=== PATIENT | male | born 1945 | race Caucasian/White ===

== ENCOUNTER 2016-07-15 03:05 | Inpatient (IN) ==
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
[2016-07-10 16:26] LABS: MANUAL DIFF NEEDED? NO; URINE MICRO REVIEW NEEDED? NO; URINE SOURCE VOIDED
[2016-07-10 16:34] LABS: BASO% 0.6 % (0.0-0.8); BILIRUBIN URINE NEGATIVE (NEGATIVE); BLOOD URINE NEGATIVE (NEGATIVE); COLOR YELLOW; EOS# 0.16 X1000 (0.0-0.7); EOS% 2.3 % (0.0-10.0); GLUCOSE URINE NEGATIVE (NEGATIVE); HEMATOCRIT 43.1 % (42.0-52.0); LEUKOCYTES URINE NEGATIVE (NEGATIVE); LYMPH# 1.96 X1000 (1.2-3.4); LYMPH% 27.7 % (20.5-51.1); MCH 24.9 PG (27-31); MCHC 32.5 g/dL (33-37); MCV 76.6 FL (81-99); MONO# 0.73 X1000 (0.11-0.59); MONO% 10.3 % (1.7-9.3); MPV 10.3 FL (7.4-10.4); NEUT% 59.1 % (42.2-75.2); NITRITE URINE NEGATIVE (NEGATIVE); PLT 303 X1000 (130-400); PROTEIN URINE TRACE mg/dL (NEGATIVE); RBC 5.63 XMIL (4.7-6.1); SP GRAVITY URINE 1.019; TURBIDITY URINE CLEAR (CLEAR); UROBILINOGEN URINE NORMAL (NORMAL)
[2016-07-10 16:35] LABS: UR EPITHELIAL CELLS <10 /HPF (<10); URINE BACTERIA NEGATIVE /HPF; URINE RBC <10 /HPF (<10); URINE WBC <10 /HPF (<10)
--- NOTE | 2016-07-10 17:03 | EKG Report ---
Test Performed on : 07/10/2016 3:59:09 PM Test Reason : PAT Blood Pressure : / mmHG Vent. Rate : 082 BPM Atrial Rate : 082 BPM P-R Int : 180 ms QRS Dur : 094 ms QT Int : 356 ms P-R-T Axes : 037 -43 083 degrees QTc Int : 415 ms Sinus rhythm. with blocked premature atrial complexes. with premature supraventricular complexes. Left axis deviation Inferior infarct , age undetermined Abnormal ECG No previous ECGs available Confirmed by Carlitos Pizarro MD ([id number]) on 07/11/2016 3:29:38 PM
[2016-07-10 17:05] LABS: AGAP 14; ALBUMIN 4.1 g/dL (3.5-5.0); ALKALINE PHOSPHATASE 120 U/L (32-122); BUN 13 mg/dL (8-22); CALCIUM 9.2 mg/dL (8.8-10.2); CHLORIDE 92 mmol/L (98-107); COSMO 264; GOT 9 U/L (10-34); GPT 9 U/L (10-44); POTASSIUM 3.9 mmol/L (3.5-5.1); SODIUM 131 mmol/L (136-145); TCO2 25 mmol/L (25-35); TOTAL BILIRUBIN 0.35 mg/dL (0.20-1.00); TOTAL PROTEIN 7.5 g/dL (6.3-8.3)
[2016-07-15] MEDS ORDERED: PEPCID ONE (06:13)
[2016-07-15] MEDS ORDERED: LR 1,000 ML ONE ×2 (06:13→08:46)
[2016-07-15] MEDS ORDERED: XYLOCAINE 1%/EPI 1:100,000 ONE (06:28)
[2016-07-15] MEDS ORDERED: MARCAINE 0.25% PF/EPI 1:200,000 ONE (06:28)
[2016-07-15] MEDS ORDERED: NS 250 ML ONE (06:29)
[2016-07-15] MEDS ORDERED: HEPARIN ONE (06:29)
[2016-07-15] MEDS ORDERED: MEFOXIN 1 GM/D5W 1 GM/50 ML IVPB IV ONE (07:00)
[2016-07-15] MEDS ORDERED: FLAGYL 1000 MG/NS 1,000 MG/200 ML IVPB IV ONE (07:00)
[2016-07-15] MEDS ORDERED: EXPAREL 1.3% ONE (07:06)
[2016-07-15] MEDS ORDERED: MARCAINE 0.25% PF ONE (07:06)
[2016-07-15] MEDS ORDERED: SODIUM CHLORIDE 0.9% 10 ML ONE (07:06)
[2016-07-15] MEDS ORDERED: VERSED ONE (08:38)
[2016-07-15 08:39] LABS: URINE MICRO REVIEW NEEDED? NO; URINE SOURCE CATH
[2016-07-15] MEDS ORDERED: DIPRIVAN 1% ONE (08:39)
[2016-07-15 08:42] LABS: BILIRUBIN URINE NEGATIVE (NEGATIVE); BLOOD URINE NEGATIVE (NEGATIVE); COLOR YELLOW; GLUCOSE URINE NEGATIVE (NEGATIVE); LEUKOCYTES URINE NEGATIVE (NEGATIVE); NITRITE URINE NEGATIVE (NEGATIVE); PH URINE 8.5; PROTEIN URINE 70 mg/dL (NEGATIVE); SP GRAVITY URINE 1.021; TURBIDITY URINE HAZY (CLEAR); UR EPITHELIAL CELLS <10 /HPF (<10); URINE BACTERIA NEGATIVE /HPF; URINE RBC <10 /HPF (<10); URINE WBC <10 /HPF (<10); UROBILINOGEN URINE NORMAL (NORMAL)
[2016-07-15] MEDS ORDERED: XYLOCAINE-MPF 2% ONE (08:45)
[2016-07-15] MEDS ORDERED: ZOFRAN ONE (08:45)
[2016-07-15] MEDS ORDERED: ROBINUL ONE (08:45)
[2016-07-15] MEDS ORDERED: NEOSTIGMINE ONE (08:45)
[2016-07-15] MEDS ORDERED: QUELICIN (DOSE) ONE (08:46)
[2016-07-15] MEDS ORDERED: DECADRON ONE (08:46)
[2016-07-15] MEDS ORDERED: ZEMURON ONE (08:46)
[2016-07-15] MEDS: DILAUDID ONE ×3 (08:57→09:10)
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
[2016-07-15] MEDS ORDERED: D5 1/2 NS 1,000 ML ONE (09:10)
[2016-07-15] MEDS ORDERED: ZOFRAN IV PRN ×2 (09:36→16:28)
[2016-07-15] MEDS ORDERED: MORPHINE IV PRN (09:37)
[2016-07-15] MEDS: D5 1/2 NS 1,000 ML IV SCH ×2 (11:55→20:19)
--- NOTE | 2016-07-15 11:59 | OPERATIVE NOTE ---
PROCEDURE DATE: 07/15/2016 PREOPERATIVE DIAGNOSIS: Esophageal carcinoma. POSTOPERATIVE DIAGNOSIS: Esophageal carcinoma. PROCEDURE: 1. Left subclavian PowerPort for chemotherapy. 2. Laparotomy for placement feeding jejunostomy. DESCRIPTION OF PROCEDURE IN DETAIL: The patient was brought to the operating room after satisfactory induction of IV and endotracheal anesthesia. Athrombic SHAUNNA's and Reeves catheter were placed. Initially his left chest and neck were prepped and draped in the appropriate manner. In the midclavicular line, an area was infiltrated with Marcaine and Xylocaine with epinephrine. A transverse incision was made down to the clavipectoral fascia. Through the base of this incision, a subcutaneous pocket was developed inferiorly. Likewise, through the base of this incision, the subclavian vein was cannulated. A guidewire was introduced into the right atrial area of the heart. On fluoroscopy, the wire was seen to be in satisfactory position. There was no pneumothorax. A 9-Chadian introducer was used to dilate the vessel and a system trimmed to 20 cm was threaded down the superior vena cava-right atrial junction. It was flushed with heparinized saline. The reservoir was anchored to the clavipectoral fascia with 3-0 silk. The subcutaneous was closed with 3-0 Vicryl and the skin itself with 4-0 Vicryl subcuticular. Steri-Strips, Telfa, and OpSite were applied. The patient was then re-prepped and draped for exploratory laparotomy. He has a large diastasis rectus muscle. So, for this reason a left paramedian incision was performed for placement of the feeding jejunostomy. The ligament of Treitz was identified on entry into to the abdomen. There was no gross evidence of malignancy. The patient has a known esophageal carcinoma. Jejunum was mobilized. The ligament of Treitz was once again identified. An area about a foot from the ligament of Treitz was prepared with double pursestring of 2-0 Vicryl. A left lateral stab wound incision was made and an 18-gauge Red Zavaleta catheter was placed. Subsequently enterotomy was performed in the middle of the pursestring and the Red Zavaleta was threaded distally. The pursestring was tied and the sutures were anchored to the peritoneal surface. After accounting for all sponges, closure was initiated. The peritoneum was closed in a single running layer of #1 Vicryl. The fascia was closed with running #1 PDS or Maxon. Subcutaneous was closed with 3-0 Vicryl and the skin, itself, with stainless steel clips. Sterile dressing was applied around the jejunostomy, as well as the wound. The patient was subsequently awakened and extubated in the operating room. His Reeves catheter was removed. Estimated blood loss was a total of 20 mL for both procedures. cc: Sim Molina MD
[2016-07-15 12:44] LABS: URINE CULTURE NEEDED? NO; URINE MICRO REVIEW NEEDED? NO; URINE SOURCE CATH
[2016-07-15 12:58] LABS: BILIRUBIN URINE NEGATIVE (NEGATIVE); BLOOD URINE NEGATIVE (NEGATIVE); COLOR YELLOW; GLUCOSE URINE 70 mg/dL (NEGATIVE); LEUKOCYTES URINE NEGATIVE (NEGATIVE); NITRITE URINE NEGATIVE (NEGATIVE); PROTEIN URINE NEGATIVE (NEGATIVE); SP GRAVITY URINE 1.009; TURBIDITY URINE CLEAR (CLEAR); UROBILINOGEN URINE NORMAL (NORMAL)
[2016-07-15 13:08] LABS: UR EPITHELIAL CELLS <10 /HPF (<10); URINE BACTERIA NEGATIVE /HPF; URINE RBC <10 /HPF (<10); URINE WBC <10 /HPF (<10)
[2016-07-15] MEDS ORDERED: NARCAN IV PRN (16:28)
[2016-07-15] MEDS ORDERED: DILAUDID PCA VIAL IV PRN (16:28)
[2016-07-15] MEDS: NORCO-10 PO PRN (16:37)
[2016-07-15] MEDS: PRAVACHOL PO SCH (20:19)
[2016-07-15] MEDS: NORCO-10 PO SCH (20:20)
[2016-07-15] MEDS: FLOMAX PO SCH (20:20)
[2016-07-15] MEDS: PERIDEX MT SCH (20:20)
[2016-07-16] MEDS: D5 1/2 NS 1,000 ML IV SCH ×2 (06:43→16:45)
[2016-07-16] MEDS: PERIDEX MT SCH ×2 (09:19→20:40)
[2016-07-16] MEDS: FLOMAX PO SCH ×2 (09:20→20:40)
[2016-07-16] MEDS: NORCO-10 PO SCH ×2 (09:20→20:39)
[2016-07-16] MEDS: TOFRANIL PO SCH (09:20)
[2016-07-16] MEDS: NORVASC PO SCH (09:20)
[2016-07-16] MEDS: STELAZINE PO SCH (09:21)
[2016-07-16] MEDS: NORCO-10 PO PRN (16:46)
[2016-07-16] MEDS: PRAVACHOL PO SCH (20:40)
[2016-07-17] MEDS: D5 1/2 NS 1,000 ML IV SCH ×2 (03:38→13:24)
[2016-07-17] MEDS: NORCO-10 PO PRN ×2 (03:42→13:22)
[2016-07-17] MEDS: NORCO-10 PO SCH (08:59)
[2016-07-17] MEDS: FLOMAX PO SCH (08:59)
[2016-07-17] MEDS: STELAZINE PO SCH (08:59)
[2016-07-17] MEDS: PERIDEX MT SCH (09:00)
[2016-07-17] MEDS: NORVASC PO SCH (09:00)
[2016-07-17] MEDS: TOFRANIL PO SCH (09:00)
[2016-07-17 11:36] VITALS: BP 163/85
== END 2016-07-17 15:08 | disposition home health service (06) ==
LOC: SURHOLD 03:05 → 4N 09:30
PROVIDERS: ADMIT Surgery; ATTEND Surgery

== ENCOUNTER 2016-08-30 11:09 | Inpatient (IN) ==
[2016-08-30] MEDS ORDERED: NS 1,000 ML IV ONE (11:24)
[2016-08-30] MEDS ORDERED: ZOFRAN IV ONE (11:24)
[2016-08-30 11:53] LABS: BASO% 0.1 % (0.0-0.8); EOS# 0.05 X1000 (0.0-0.7); EOS% 0.2 % (0.0-10.0); HEMATOCRIT 38.9 % (42.0-52.0); HEMOGLOBIN 12.7 g/dL (14.0-18.0); LYMPH# 2.26 X1000 (1.2-3.4); LYMPH% 9.5 % (20.5-51.1); MANUAL DIFF NEEDED? NO; MCH 26.4 PG (27-31); MCHC 32.6 g/dL (33-37); MCV 80.9 FL (81-99); MONO# 0.77 X1000 (0.11-0.59); MONO% 3.2 % (1.7-9.3); MPV 10.2 FL (7.4-10.4); PLT 323 X1000 (130-400); RBC 4.81 XMIL (4.7-6.1)
--- NOTE | 2016-08-30 12:19 | Diag Imaging Result Doc PS360 ---
EXAM: FLAT/UPRIGHT ABD/1 VIEW CHEST HISTORY: Feeding tube came out, cancer on chemo TECHNIQUE: Three views COMPARISON: Chest is compared to 07/15/2016 FINDINGS: The lungs are well expanded. No cardiomegaly. No change in the left subclavian portacatheter. No pneumonia. No free air beneath the diaphragm. Prominent stool in the distal colon. The bowel loops are not dilated. No organomegaly. No abnormal calcifications. IMPRESSION: Constipation Electronically signed by Anthony Souza 08/30/2016 12:16 PM
[2016-08-30 12:22] LABS: AGAP 14; ALBUMIN 3.3 g/dL (3.5-5.0); ALKALINE PHOSPHATASE 89 U/L (32-122); AMYLASE 52 U/L (20-200); BUN 25 mg/dL (8-22); CALCIUM 7.9 mg/dL (8.8-10.2); CHLORIDE 92 mmol/L (98-107); COSMO 276; GOT 9 U/L (10-34); GPT 13 U/L (10-44); LIPASE 28 U/L (13-60); MAGNESIUM 2.1 mg/dL (1.5-2.7); POTASSIUM 3.8 mmol/L (3.5-5.1); SODIUM 133 mmol/L (136-145); TCO2 27 mmol/L (25-35); TOTAL BILIRUBIN 0.26 mg/dL (0.20-1.00); TOTAL PROTEIN 5.7 g/dL (6.3-8.3)
[2016-08-30] MEDS ORDERED: PHENERGAN IV ONE (13:38)
[2016-08-30] MEDS ORDERED: SODIUM CHLORIDE 0.9% INJ ONE (13:38)
[2016-08-30 13:57] LABS: BILIRUBIN URINE NEGATIVE (NEGATIVE); BLOOD URINE NEGATIVE (NEGATIVE); COLOR YELLOW; GLUCOSE URINE NEGATIVE (NEGATIVE); LEUKOCYTES URINE NEGATIVE (NEGATIVE); NITRITE URINE NEGATIVE (NEGATIVE); PH URINE 6.5; PROTEIN URINE 30 mg/dL (NEGATIVE); SP GRAVITY URINE 1.028; TURBIDITY URINE CLEAR (CLEAR); URINE CULTURE NEEDED? NO; URINE MICRO REVIEW NEEDED? NO; URINE SOURCE CLEAN CATCH; UROBILINOGEN URINE 2 mg/dL (NORMAL)
[2016-08-30 13:58] LABS: UR EPITHELIAL CELLS <10 /HPF (<10); URINE BACTERIA NEGATIVE /HPF; URINE RBC <10 /HPF (<10); URINE WBC <10 /HPF (<10)
--- NOTE | 2016-08-30 13:58 | PROVIDER DOCUMENTATION ---
This chart was entered by Kassie Stauffer Scribe, acting as scribe for Jessika Emerson MD. HPI-General Adult - General Chief Complaint: Nausea/Vomiting Stated Complaint: nausea/feeding tube out Time Seen by Provider: 08/30/16 11:11 Source: patient Allergies/Adverse Reactions: Patient Allergies Allergy/AdvReac Type Severity Reaction Status Date / Time No Known Allergies Allergy Verified 08/30/16 11:34 Home Medications: Home Medication List Medication Instructions Recorded Confirmed Last Taken Type Amlodipine [Norvasc] 5 mg PO DAILY 07/10/16 08/30/16 08/26/16 History Hydrocodone/Acetaminophen [Moodus 1 each PO BID 07/10/16 08/30/16 08/26/16 History 10-325 Tablet] Imipramine [Tofranil] 50 mg PO HS 07/10/16 08/30/16 08/26/16 History PRAVAstatin [Pravachol] 40 mg PO QHS 07/10/16 08/30/16 08/26/16 History Tamsulosin [Flomax] 0.4 mg PO BID 07/10/16 08/30/16 08/26/16 History Trifluoperazine [Stelazine] 2 mg PO HS 07/10/16 08/30/16 08/26/16 History Cephalexin 250 mg PO TID 08/27/16 08/30/16 08/26/16 14:30 History Doxylamine/Pyridoxine HCl 1 each PO TID PRN #10 tablet. 08/27/16 08/30/1606/09 Rx [Dangelo Juarez 10-10 mg Tablet] Fentanyl 25 Microgm/Hr Patch 1 patch TOP ORDERED 08/27/16 08/30/16 08/26/16 History [Duragesic 25 Microgm/Hr Patch] - History of Present Illness -Gen Adult Nature of Presenting Problems: PT IS A 71YOM PRESENTING TO THE ED C/O VOMITING AND PULLING J-TUBE OUT THIS AM. PT HAS A HISTORY OF STAGE 2 ESOPHAGEAL CANCER AND JUST COMPLETED 2ND ROUND OF CHEMO ON THURSDAY. PT STATES HE BEGAN VOMITING LAST PM WITHOUT RESOLUTION OF SYMPTOMS W/ PO MEDS AT HOME. PT ALSO STATES WHILE USING THE RESTROOM THIS AM HIS J-TUBE FEEL OUT. NO OTHER COMPLAINTS NOTED AT THIS TIME. Location of Pain/Injury: reports: generalized Pain Radiation: reports: no radiation Quality of Pain: reports: aching, cramping Severity: reports: moderate Onset/Duration: reports: 24 hours ago Timing: reports: still present Context/Activities at Onset: reports: light activity Modifying Factors: improves with: other medication (CHEMO ON WED) Associated Symptoms: reports: fatigue, nausea, vomiting, weakness. denies: arm pain, back/neck pain, diarrhea, shortness of breath Similar Symptoms Previously?: Yes Recently seen or treated by another doctor?: No Review of Systems - Adult - REVIEW OF SYSTEMS - ADULT Constitutional: reports: see HPI, fatique. denies: fever, night sweats Eyes: reports: no symptoms reported Ears, Nose, Mouth & Throat: reports: no symptoms reported Cardiovascular: reports: no symptoms reported Respiratory: reports: no symptoms reported Gastrointestinal: reports: see HPI, abdominal pain, nausea, vomiting, other (J- TUBE FEEL OUT THIS AM). denies: constipation, diarrhea Genitourinary: reports: no symptoms reported Musculoskeletal: reports: no symptoms reported Integumentary: reports: no symptoms reported Neurological: reports: no symptoms reported Psychiatric: reports: no symptoms reported Endocrine: reports: no symptoms reported Hematologic/Lymphatic: reports: no symptoms reported Allergic/Immunologic: reports: no symptoms reported All Other Systems: Reviewed and Negative Past History - Adult - PAST MEDICAL HISTORY-ADULT Review of Records: reports: Old Records Reviewed, Nursing Assessment Review, Medications Reviewed, Social history reviewed & non-contributory. Major Childhood Illnesses: reports: denies history Cardiovascular: reports: HTN Respiratory: reports: denies history Gastrointestinal: reports: cancer (esophageal) Obstetrical/Gynecological: reports: denies history Genitourinary: reports: denies history Musculoskeletal: reports: denies history Neurological: reports: denies history Endocrine/Immune: reports: Diabetes Other Conditions: reports: denies history - PRIOR SURGERIES/PROCEDURES Surgical/Procedure History: reports: indwelling device (Port cath, PEG TUBE), orthopedic (extremity) - IMMUNIZATION STATUS Childhood Immunizations: See Nurse Assessment Flu Vaccine: See Nurse Assessment - FAMILY HISTORY Family History: reviewed, not pertinent - SOCIAL HISTORY Smoking: non-smoker Substance Use: none/never, denies Alcohol Use Frequency: never Living Situation: family Physical Exam-General - PHYSICAL EXAM-ADULT Initial Vital Signs Reviewed: Yes - CONSTITUTIONAL General Appearance: appears well, alert, mild distress, moderate distress - EYES Eyes: PERRL/EOMI, pink conjunctivae - HEAD, EARS, NOSE, MOUTH & THROAT HENMT: normocephalic/atraumatic, moist mucous membranes, normal ENT inspection, TMs normal, pharynx normal - NECK Neck: non-tender, full range of motion, supple, normal inspection - RESPIRATORY Respiratory: chest non-tender, lungs clear, normal breath sounds, no pleuratic chest pain, no respiratory distress, no accessory muscle use - CARDIOVASCULAR Cardiovascular: normal peripheral pulses, regular rate, rhythm, no edema, no gallop, no JVD, no murmur - GASTROINTESTINAL (ABDOMEN) Abdominal Exam: normal bowel sounds, soft, no organomegaly, no pulsatile mass, tenderness. negative: non tender - LYMPHATIC Lymphatic: no adenopathy - MUSCULOSKELETAL Back Exam: normal inspection, no CVA tenderness, no vertebral tenderness Extremity: non-tender, no pedal edema, no calf tenderness, normal capillary refill, pelvis stable. 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 II-XII nml as tested, grossly normal, no motor/sensory deficits - PSYCHIATRIC Psych/Mental Status: normal mood/affect, normal thought content, normal thought process, oriented x 3 Progress - PLAN OF CARE/RESULTS Progress/Plan/Lab Results: Vital Signs - 8 hr 08/30/16 11:14 Temperature 97.4 F L Pulse Rate 98 H Respiratory Rate 24 Blood Pressure 164/82 O2 Sat by Pulse Oximetry 96 Orders Category Date Time Status Saline Loc DIRECTED Care 08/30/16 11:24 Active NPO Diet 08/30/16 11:24 Active FLAT/UPRIGHT ABD/1 VIEW CHEST [RAD] Stat Exams 08/30/16 11:24 Ordered AMYLASE [CHEM] Stat Lab 08/30/16 11:24 Uncollected CBC WITH ELECTRONIC DIFF [HEME] Stat Lab 08/30/16 11:24 Uncollected COMPREHENSIVE METABOLIC PANEL [CHEM] Stat Lab 08/30/16 11:24 Uncollected LIPASE [CHEM] Stat Lab 08/30/16 11:24 Uncollected MAGNESIUM [CHEM] Stat Lab 08/30/16 11:24 Uncollected TROPONIN T Stat Lab 08/30/16 11:24 Uncollected URINALYSIS W/POSS RFLX CULT-1 [URINALYSIS] Stat Lab 08/30/16 11:24 Uncollected 0.9% Sodium Chloride Inj [Ns] 1,000 ml Med 08/30/16 11:24 Active IV 999 mls/hr Ondansetron [Zofran] Med 08/30/16 11:24 Discontinued 8 mg IV NOW ONE Laboratory Tests 08/30/16 08/30/16 08/30/16 11:29 11:29 11:29 WBC 23.86 H RBC 4.81 Hgb 12.7 L Hct 38.9 L MCV 80.9 L MCH 26.4 L MCHC 32.6 L RDW Std Deviation 17.1 H Plt Count 323 MPV 10.2 Neut % (Auto) 87.0 H Lymph % (Auto) 9.5 L [place] % (Auto) 3.2 Eos % (Auto) 0.2 Baso % (Auto) 0.1 Neut # (Auto) 20.75 H Lymph # (Auto) 2.26 [place] # (Auto) 0.77 H Eos # (Auto) 0.05 Baso # (Auto) 0.03 Sodium 133 L Potassium 3.8 Chloride 92 L Carbon Dioxide 27 Anion Gap 14 BUN 25 H Creatinine 0.6 L Estimated GFR/1.73 m2 > 60 BUN/Creatinine Ratio 42 Glucose 191 H Calculated Osmolality 276 Calcium 7.9 L Magnesium 2.1 Total Bilirubin 0.26 AST 9 L ALT 13 Alkaline Phosphatase 89 Troponin T < 0.010 Total Protein 5.7 L Albumin 3.3 L Globulin 2.4 Albumin/Globulin Ratio 1.4 Amylase 52 Lipase 28 Result Diagrams: 08/30/16 11:29 08/30/16 11:29 - REASSESSMENT Reassessment #1 Time Reassessed: 13:55 Status: improving (Pt is still feeling nauseated after IV Zofran, but no vomiting. Still has no UOP yet. IV Phenergan given. Paged Dr. Beatty multiple times by now, no have not heard from him yet. Will call hopsitalist for admission.) - XRAY 1 XRAY: Bilateral XRAY Study: Abdomen (CONSTIPATION - HURST) - CONSULTS/PCP/HOSPITALIST Notification #1 *Consult/PCP/Hospitalist*: DR CANTRELL Time Discussed: 13:13 (CONSULT FOR J-TUBE PLACEMENT) Consult Disposition: other #2 Consult: Heike/Dr. Al Time Discussed: 13:58 Consult Disposition: Will see in ED, Admit Departure - Departure Date of Disposition Decision: 08/30/16 Time of Disposition Decision: 13:57 DIAGNOSIS: Nausea & vomiting, History of cancer chemotherapy, Feeding tube dysfunction Disposition: ADMITTED INPATIENT 09 Certified Medical Emergency: Emergent Condition: Stable Referrals and Follow-Ups: Zenon Alford MD [Primary Care Provider] - - Critical Care Note This patient required my direct & personal management of CC.: No This chart was documented by the indicated scribe, (Kassie Stauffer Scribe) and accurately reflects the services I performed and decisions made by me, Jessika Emerson MD, as attested by the provider's signature.
--- NOTE | 2016-08-30 14:53 | HISTORY AND PHYSICAL ---
This is a 71-year-old who presented to the emergency room on 08/30/2016. Has a history of esophageal cancer. He is scheduled to get some radiation treatments. He has had chemotherapy per Dr. Jane Kenyon. OTHER PAST MEDICAL HISTORY: He has had colon cancer. History of coronary artery disease. History of myocardial infarction. Hypertension, enlarged prostate, gastroesophageal reflux disease. He has had reported colon cancer, colon polyps, diabetes mellitus type 2. He has had a colonoscopy and EGDs. He had some hand surgery. FAMILY HISTORY: History of heart disease, hypertension, diabetes and cancer. SOCIAL HISTORY: Retired, , 2 children. Denies alcohol. Past tobacco, quit in 1990. He had chemotherapy yesterday. He has had nausea throughout the day and he threw up pretty hard and his G-tube came out but he is still nauseated and still not able to keep anything down. He appears in mild volume depletion or dehydration as his mucous membranes are dry so plan to put him in the hospital. Note his abdominal x-ray on 08/30 or today showed constipation. No free air. Lung romero are clear. Has a left subclavian Port-A-Cath. FAMILY HISTORY: Noncontributory. REVIEW OF SYSTEMS: Denies any weight gain or loss. No fever or chills.HEENT: Unremarkable. Respiratory: No increased work of breathing or dyspnea. Cardiovascular: No chest pain or tachy palpitation. GI/: As above. Nausea, lost his G-tube. EXAM: Temp 97.4 degrees, pulse 97, respirations 22, blood pressure 147/76. HEENT: The pupils are equal, round. Lungs: Are clear in all lung romero. Cardiovascular: Regular rhythm and rate without murmur or S3. Abdomen: Soft, nontender, nondistended. Positive bowel sounds. No hepatosplenomegaly. Extremities: Without clubbing, cyanosis, or edema. Has a fistula in the left upper abdomen where his G-tube was. Weight 175 pounds, height 5 feet 11 inches. White blood cell count 2360, hematocrit 38, platelet count 323,000. Sodium 133, potassium 3.8, chloride 92, bicarb 27, BUN 25, creatinine 0.6. Blood sugar 191. Magnesium 2.1. AST 9, ALT 13. Troponin less than 0.01. Albumin 3.3, amylase 52, lipase 28. Urinalysis unremarkable. ASSESSMENT AND PLAN: 1. Esophageal cancer getting chemotherapy. I suspect this is related to esophageal mucositis and nausea from the chemotherapy. Will give him IV fluids, normal saline. We will get will try Zofran and try Phenergan and even Reglan and see if we can get the nausea to calm down some. I think I will give him some nutrition using Clinimix. 2. G-tube came out. Asked Dr. Molina what he would like to do. Also Dr. Kenyon's patient. 3. Consult Dr. Kenyon and Dr. Molina. Review of his medicines. At home he is on Norvasc 5 mg a day. He was taking cephalexin 250 mg t.i.d., fentanyl patch 25 mcg to 72 hours. Hydrocodone 10-325 one b.i.d., imipramine 50 mg p.o. at bedtime, Pravachol 40 mg at bedtime, Flomax 0.4 mg b.i.d., Stelazine 2 mg p.o. at bedtime. cc: Emory Al MD
[2016-08-30] MEDS ORDERED: PHENERGAN IV PRN (15:20)
[2016-08-30] MEDS ORDERED: NS 1,000 ML IV SCH (15:20)
[2016-08-30] MEDS ORDERED: SODIUM CHLORIDE 0.9% INJ SCH (15:20)
[2016-08-30] MEDS ORDERED: APRESOLINE IV PRN (15:20)
[2016-08-30] MEDS ORDERED: VANCOMYCIN IV PER PHARMACY MISC SCH (15:20)
[2016-08-30] MEDS ORDERED: SODIUM CHLORIDE 0.9% INJ PRN (15:20)
[2016-08-30] MEDS: CLINIMIX E 4.25%-5% SOLUTION 1,000 ML IV SCH (16:06)
[2016-08-30] MEDS: PEPCID IV SCH (16:06)
[2016-08-30] MEDS: ZOSYN 3.375 GM/NS 3.375 GM/50 ML IVPB IV SCH ×2 (16:07→22:08)
[2016-08-30] MEDS ORDERED: VANCOMYCIN 2,000 MG in NS 500 ML IV ONE (17:00)
[2016-08-30] MEDS: HUMULIN R SUBQ SCH ×2 (17:41→22:08)
[2016-08-30] MEDS: DURAGESIC 25 MICROGM/HR PATCH TD SCH (22:09)
[2016-08-30] MEDS: ZOFRAN IV PRN (22:18)
[2016-08-31] MEDS: PEPCID IV SCH ×2 (03:52→16:06)
[2016-08-31] MEDS: ZOSYN 3.375 GM/NS 3.375 GM/50 ML IVPB IV SCH ×4 (03:53→21:12)
[2016-08-31] MEDS: CLINIMIX E 4.25%-5% SOLUTION 1,000 ML IV SCH ×2 (03:53→16:06)
[2016-08-31] MEDS: ZOFRAN IV PRN (04:01)
[2016-08-31] MEDS: HUMULIN R SUBQ SCH ×4 (06:21→21:11)
[2016-08-31 06:23] LABS: BASO% 0.2 % (0.0-0.8); EOS# 0.12 X1000 (0.0-0.7); EOS% 0.4 % (0.0-10.0); HEMATOCRIT 33.4 % (42.0-52.0); HEMOGLOBIN 10.8 g/dL (14.0-18.0); IMM GRAN# 4.65 X1000 (0.0-0.04); IMM GRAN% 16.2 % (0.0-0.5); LYMPH# 2.49 X1000 (1.2-3.4); LYMPH% 8.7 % (20.5-51.1); MANUAL DIFF NEEDED? YES; MCHC 32.3 g/dL (33-37); MCV 80.5 FL (81-99); MONO# 0.81 X1000 (0.11-0.59); MONO% 2.8 % (1.7-9.3); MPV 10.4 FL (7.4-10.4); NEUT% 71.7 % (42.2-75.2); PLT 297 X1000 (130-400); RBC 4.15 XMIL (4.7-6.1)
[2016-08-31 06:42] LABS: AGAP 13; ALBUMIN 2.9 g/dL (3.5-5.0); ALKALINE PHOSPHATASE 78 U/L (32-122); BUN 19 mg/dL (8-22); CHLORIDE 95 mmol/L (98-107); COSMO 274; GOT 8 U/L (10-34); GPT 10 U/L (10-44); MAGNESIUM 1.9 mg/dL (1.5-2.7); POTASSIUM 3.6 mmol/L (3.5-5.1); SODIUM 134 mmol/L (136-145); TCO2 26 mmol/L (25-35); TOTAL BILIRUBIN 0.54 mg/dL (0.20-1.00); TOTAL PROTEIN 4.8 g/dL (6.3-8.3)
[2016-08-31 06:44] LABS: INR 1.02; PROTIME 10.7 Seconds (9.2-11.7)
[2016-08-31 06:51] LABS: BANDS 14 % (0-1); LYMPHS 8 % (21-51)
[2016-08-31 06:57] LABS: FREE T4 1.07 ng/dL (0.93-1.70)
[2016-08-31] MEDS ORDERED: FENTANYL ONE (07:40)
[2016-08-31] MEDS ORDERED: DIPRIVAN 1% ONE (07:40)
[2016-08-31] MEDS ORDERED: QUELICIN (DOSE) ONE (07:42)
[2016-08-31] MEDS ORDERED: NORCURON ONE (07:42)
[2016-08-31] MEDS ORDERED: STERILE WATER INJ. ONE (07:42)
[2016-08-31] MEDS ORDERED: XYLOCAINE-MPF 2% ONE (07:42)
[2016-08-31] MEDS ORDERED: DECADRON ONE (07:44)
[2016-08-31] MEDS ORDERED: ZOFRAN ONE (07:44)
--- NOTE | 2016-08-31 08:18 | CONSULTATION ---
DATE OF CONSULTATION: 08/31/2016 REFERRING PHYSICIAN: Patient seen in consultation at the request of Dr. Al. REASON FOR CONSULTATION: Nausea, vomiting, esophageal cancer. HISTORY OF PRESENT ILLNESS: Mr. Villasenor is a 71-year-old gentleman who is well known to me with a recent diagnosis of metastatic esophageal carcinoma. He has been on treatment with cisplatin and 5-FU. He received cycle 2 of therapy on August 25. He had intractable nausea and vomiting with this cycle of chemotherapy despite Ativan gel, Reglan gel, Phenergan gel, and a Sancuso patch. He noted a loss of his J-tube yesterday and presented to the emergency room for further evaluation. He has seen Dr. Molina who is planning on proceeding with J-tube replacement surgically today. He continues to have intermittent waves of severe nausea and dry heaving. He has soreness in his abdomen from the recurrent retching. He is vomiting up primarily mucus. He notes occasional streaks of blood in his emesis and his sputum but no crow bleeding. PAST MEDICAL HISTORY: Significant for depression, esophageal cancer, BPH, hypertension, diabetes, coronary artery disease. PAST SURGICAL HISTORY: None other than J-tube placement and port placement. ALLERGIES: Reviewed, per the chart. MEDICATIONS: Reviewed, per the chart. REVIEW OF SYSTEMS: Negative except as per HPI. FAMILY MEDICAL HISTORY: Mom at 80 with possible lymphoma. Dad at 74 with heart disease. His children are 49 and 51, and healthy. SOCIAL HISTORY: Patient smoked 30 years x3 packs per day. Quit in the early . No alcohol or illicit drug use. ASSESSMENT AND PLAN: 1. Metastatic esophageal carcinoma: Imaging prior to initiation of his first cycle of chemotherapy showed multiple soft tissue metastatic deposits in the right chest wall, right proximal arm, left medial thigh, and the right lateral thigh. He is on palliative treatment for a large primary tumor. He is status post cycle 2 of cisplatin and 5-FU. We will plan to discontinue that therapy at this time. We will plan restaging scans prior to his return visit. Treatment on hold at this time. 2. Nausea and vomiting: He continues on Zofran and Phenergan at this time. Hydrate aggressively as I think that dehydration is contributing some to his nausea and vomiting. I will see if Dr. Molina come do an upper endoscopy at the time of his J-tube replacement as well. Restaging scans as above. 3. J-tube malfunction: He will have replacement of his J-tube today. 4. Leukocytosis: He is status post Neulasta on 08/29/2016. LABORATORY DATA: White count 28.75, hemoglobin 10.8, platelet count 297,000. INR 1. B12 and folic acid, and thyroid function tests normal. UA is negative. Sodium 134, potassium 3.6, creatinine 0.6, calcium 8, magnesium 1.9. Abdominal x-ray 08/30/2016 shows constipation. cc: MD Gonzalez Novoa MD Hugh C. Nabers, MD I have seen and examined the patient and the above note reflects my assessment and plan. Jane Kenyon MD [facility]
[2016-08-31] MEDS ORDERED: APRESOLINE ONE (08:36)
[2016-08-31] MEDS ORDERED: ROBINUL ONE (08:53)
[2016-08-31] MEDS ORDERED: NEOSTIGMINE ONE (08:55)
[2016-08-31] MEDS ORDERED: DILAUDID ONE (09:15)
[2016-08-31] MEDS ORDERED: MORPHINE IV PRN (09:19)
[2016-08-31] MEDS ORDERED: PHENERGAN IV PRN (09:21)
[2016-08-31] MEDS ORDERED: BENADRYL IV PRN (09:30)
[2016-08-31] MEDS ORDERED: NARCAN IV PRN (09:30)
--- NOTE | 2016-08-31 09:59 | PROGRESS NOTE ---
DATE: 08/31/2016 SUBJECTIVE: Mr. Villasenor had a fairly better night. His plan is to go down and put his J-tube back in. He remains afebrile. PHYSICAL EXAMINATION: Vital Signs: Temperature 98.6 degrees, pulse 80, respirations 17, blood pressure 138/67. HEENT: Pupils are equal and round. Lungs: Are clear in all lung romero. Cardiovascular Examination: Regular rhythm and rate without murmur or S3. Abdomen: Soft. Skin: Is warm and dry. Is and Os: Urine output about 2400 mL. LAB: White count 28,750, hematocrit 33, platelet count 297,000. Sodium 134, potassium 3.6, chloride 95, BUN is 19, creatinine 0.6, blood sugar 168, calculated osmolality 274, calcium 8. Albumin was 2.9, total protein 4.8. ASSESSMENT AND PLAN: 1. Metastatic esophageal carcinoma. Imaging prior to initiation of 1st cycle of chemotherapy showed multiple soft tissue metastatic deposits in the right chest wall, right proximal arm, right medial thigh, and right lateral thigh. He has palliative treatment for a large primary tumor. He is status post cycle 2 of cisplatin and 5-FU. We will plan to discontinue this treatment at this time and re-stage him prior to return. 2. Nausea and vomiting. J-tube came out. Continue to hydrate aggressively. Dr. Sim Molina plans to put the J-tube back in. Not sure if we need an upper endoscopy. 3. J-tube has come out. Return resume his nutrition. 4. Leukocytosis, status post Neulasta on 08/29/2016. Lab today looks pretty good. 5. Review of orders. I do not see any change at this point. We do have him on Zosyn and vancomycin empirically. I do not know that we have seen any sign of bacterial infection. Did have some leukocytosis though. cc: Emory Al MD
[2016-08-31] MEDS ORDERED: D5 1/2 NS 1,000 ML IV SCH (10:00)
[2016-08-31 10:08] LABS: URINE CULTURE NEEDED? NO; URINE MICRO REVIEW NEEDED? NO; URINE SOURCE CATH
[2016-08-31 10:12] LABS: BILIRUBIN URINE NEGATIVE (NEGATIVE); BLOOD URINE NEGATIVE (NEGATIVE); COLOR YELLOW; GLUCOSE URINE TRACE mg/dL (NEGATIVE); LEUKOCYTES URINE NEGATIVE (NEGATIVE); NITRITE URINE NEGATIVE (NEGATIVE); PH URINE 7.5; PROTEIN URINE TRACE mg/dL (NEGATIVE); SP GRAVITY URINE 1.021; TURBIDITY URINE CLEAR (CLEAR); UR EPITHELIAL CELLS <10 /HPF (<10); URINE BACTERIA NEGATIVE /HPF; URINE RBC <10 /HPF (<10); URINE WBC <10 /HPF (<10); UROBILINOGEN URINE NORMAL (NORMAL)
[2016-08-31] MEDS: NS 1,000 ML IV SCH ×2 (10:45→16:07)
[2016-08-31] MEDS: MORPHINE PCA IV PRN (11:02)
[2016-08-31] MEDS: VANCOMYCIN 1,650 MG in NS 250 ML IV SCH (11:30)
--- NOTE | 2016-08-31 15:57 | OPERATIVE NOTE ---
PROCEDURE DATE: 08/31/2016 PREOPERATIVE DIAGNOSIS: Stage IV advanced esophageal carcinoma dependent on feeding jejunostomy. INDICATION: The patient had a vomiting episode with expulsion of the jejunostomy tube. Attempts at percutaneous replacement were unsuccessful yesterday under fluoro. PROCEDURE TODAY: 1. Is exploratory laparotomy. 2. Replacement feeding jejunostomy. DESCRIPTION OF PROCEDURE: The patient is brought to the operating room. After satisfactory induction of IV and endotracheal anesthesia, athrombic TEDs and Reeves catheter were placed. His abdomen was broadly prepped and draped in the appropriate manner. The old incision from 07/15 was re-incised with hemostasis being achieved by electrocautery. Old suture material was removed. The peritoneum was grasped and entered. There was no purulence or evidence of abscess around the jejunostomy site. Attempts at percutaneous placement with handling of the loop of jejunum were unsuccessful. For this reason, the jejunal loop was freed up from the abdominal wall. The 18- gauge red Zavaleta catheter was subsequently threaded through the hole and directly threaded downstream. It was anchored with double pursestring of 2-0 Vicryl and this was tacked to the peritoneal surface again. The system was anchored to the skin with 0 silk and the system was pierced with a 0 silk as well. cap was placed. After accounting for all laparotomy sponges, closure was initiated. The peritoneum was closed with a single running layer of #1 Vicryl. The fascia was closed with #1 Maxon. Subcutaneous was debrided with Betadine. The skin was closed with stainless steel clips. Sterile dressing was applied. The patient was awakened and extubated in the operating room and transferred to recovery. ESTIMATED BLOOD LOSS: Was about 20-30 mL. cc: Sim Molina MD
[2016-09-01] MEDS: MORPHINE PCA IV PRN ×2 (03:27→21:40)
[2016-09-01] MEDS: ZOSYN 3.375 GM/NS 3.375 GM/50 ML IVPB IV SCH ×4 (03:57→22:19)
[2016-09-01] MEDS: PEPCID IV SCH ×2 (03:57→17:56)
[2016-09-01] MEDS: VANCOMYCIN 1,650 MG in NS 250 ML IV SCH (04:34)
[2016-09-01] MEDS: CLINIMIX E 4.25%-5% SOLUTION 1,000 ML IV SCH ×2 (04:35→17:56)
[2016-09-01 06:06] LABS: BASO% 0.2 % (0.0-0.8); HEMATOCRIT 33.6 % (42.0-52.0); HEMOGLOBIN 10.6 g/dL (14.0-18.0); LYMPH# 2.58 X1000 (1.2-3.4); LYMPH% 8.5 % (20.5-51.1); MANUAL DIFF NEEDED? YES; MCH 25.8 PG (27-31); MCHC 31.5 g/dL (33-37); MCV 81.8 FL (81-99); MONO# 0.61 X1000 (0.11-0.59); MPV 10.3 FL (7.4-10.4); PLT 228 X1000 (130-400); RBC 4.11 XMIL (4.7-6.1)
[2016-09-01] MEDS: HUMULIN R SUBQ SCH ×4 (06:09→22:19)
[2016-09-01 06:17] LABS: AGAP 11; BUN 18 mg/dL (8-22); CALCIUM 7.5 mg/dL (8.8-10.2); CHLORIDE 96 mmol/L (98-107); COSMO 269; SODIUM 131 mmol/L (136-145); TCO2 24 mmol/L (25-35)
[2016-09-01 06:38] LABS: BANDS 1 % (0-1); EOS 1 % (1-10); LYMPHS 11 % (21-51); MONO 1 % (1-9)
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
--- NOTE | 2016-09-01 08:13 | Diag Imaging Result Doc PS360 ---
CT THORAX W/CONTRAST - 09/01/2016 INDICATION: stage 4 esophageal cancer TECHNIQUE: A CT dose reduction protocol was used. COMPARISON: 08/02/2016 FINDINGS: Stable left chest port in good position. Heart and great vessels remain grossly normal. There is free air in the peritoneum likely from the patient's recent laparotomy. No fluid collections. There is slight increase in size of a chest wall soft tissue implant at the lateral right breast. This enhances heterogeneously. This measures 19.2 mm previously measuring 14.3 mm. There is slight increase in size but decrease in enhancement in the periesophageal adenopathy at the level of the heart. The same is true of the esophageal mass. Gastrohepatic adenopathy is also minimally increased in size. There are trace pleural effusions and some linear atelectasis in the lung bases. No infiltrates in the lungs. There are moderate degenerative changes of the spine. No acute or suspicious bony lesion. IMPRESSION: Slight increase in size in soft tissue implant, esophageal mass and adenopathy, with some slight decrease in enhancement. Trace pleural effusions. Trace peritoneal free air from the recent abdominal surgery. Otherwise, no new or specific abnormality. Electronically signed by Gómez Berrios 09/01/2016 8:10 AM
[2016-09-01] MEDS ORDERED: MYCAMINE 100 MG in NS 100 ML IV SCH (09:00)
[2016-09-01] MEDS: MYCAMINE 100 MG in NS 100 ML IV SCH (10:09)
[2016-09-01] MEDS: NS 1,000 ML IV SCH (10:09)
--- NOTE | 2016-09-01 11:09 | CONSULTATION ---
DATE OF CONSULTATION: 09/01/2016 CONCLUSION: The patient is status post surgery for replacement of a J tube that came out. The patient had some local drainage around his J-tube site before it came out. It grew oxacillin sensitive Staphylococcus aureus and Klebsiella. The patient is status post replacement of the J- tube. Despite being on appropriate antibiotics the patient's white count is elevated and it went from 28,000 yesterday to 30,000 today. It does not appear that he has any wound infection now. At the time the patient's J tube was put in there was no evidence of an abdominal abscess either. The patient does have a Port-A-Cath and possibly he had an infection arising from that although the site itself is not erythematous or swollen. Possibly the patient has pneumonia. RECOMMENDATIONS: I agree with the patient's current antibiotics namely vancomycin and Zosyn. To this, I have added micafungin and I have also ordered a chest x-ray to look for pneumonia. DISCUSSION: The patient has esophageal cancer. He had a G-tube placed for feeding, but the tube came out. It was replaced by Dr. Molina at surgery. In his operative report there was mention made of intra-abdominal abscess. There was some drainage coming from around the patient's J-tube and as mentioned above, it grew oxacillin sensitive Staphylococcus aureus and Klebsiella. LABORATORY DATA: The patient's CBC shows today that the white count went from 28,000 to 30,150. Hemoglobin 10.6, and platelet count 228,000. Creatinine is 0.6. GFR is greater than 60. Liver function studies are normal. Urinalysis shows no white cells or bacteria. IMAGING STUDIES: X-ray of the abdomen shows constipation. PAST MEDICAL HISTORY/REVIEW OF SYSTEMS: General: In general, the patient is weak. He has not been having fever or chills. He has been losing weight. HEENT: Eyes and ears, patient denies difficulty hearing or seeing. Neck: No stiffness. Respiratory: No cough or shortness of breath. Cardiovascular: No chest pain or palpitation. Gastrointestinal: The patient did have some vomiting in the past week. He does have constipation as seen on x-ray and also the fact that he only has a bowel movement at most every other day. Genitourinary: No dysuria or flank pain. Bones, joints, muscles: No joint swelling or myalgias. Neurologic: The patient as mentioned above has generalized weakness, but he has not lost any unilateral motor or sensory functions. Integument: No rash. Endocrine: The patient does have diabetes but not thyroid disease. Hematologic/Oncologic: Patient has esophageal cancer and is receiving chemotherapy for it. PREVIOUS HOSPITALIZATIONS AND OPERATIONS: He has had surgery on his hand. He has had placement of a left-sided Port-A-Cath. He has also had placement of a J-tube in the past. MEDICAL DISEASES: Positive for esophageal cancer, diabetes mellitus, hypertension and myocardial infarction. Hyperlipidemia and benign prostatic hypertrophy. INFECTIOUS DISEASE HISTORY: Positive for pneumonia. Negative for UTI. FAMILY HISTORY: Positive for diabetes mellitus, hypertension, myocardial infarction and cancer. SOCIAL HISTORY: [place] He stopped smoking cigarettes and drinking alcoholic beverages 27 years ago. He does not use illicit drugs. He has a cat as a pet. 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 ALLERGIES: He has no known drug allergies. HOME MEDICATIONS: Include Stelazine, Flomax, Pravachol, Tofranil, hydrocodone, fentanyl patch, doxylamine and pyridoxine, cephalexin and Norvasc. PHYSICAL EXAMINATION: Vital Signs: Temperature is 98 degrees, pulse 79, respirations 14, blood pressure 143/65. General: This is a chronically ill-appearing, elderly male. He is in no acute distress. Head, eyes, ears, nose, and throat: Patient had dentures in. Neck: No meningismus. Lungs: Clear to auscultation. Thorax: Increased AP diameter of the chest. The patient has a left-sided Port-A-Cath in place. The site was not erythematous or swollen or tender. Abdomen: Soft and not tender to light palpation. The J-tube site has a dressing over it. The dressing was intact. Neurologic: Patient is awake. He can move his extremities. There is no tremor. His sensation is intact to touch. His memory, as regarding his medical history seemed to be intact also. Extremities: There was no swelling of the legs or arms. Thank you for the consult. cc: Alex Rizvi MD
--- NOTE | 2016-09-01 14:48 | PROGRESS NOTE ---
DATE: 09/01/2016 SUBJECTIVE: Mr. Villasenor reports that he is feeling better today. His nausea and vomiting are better as well. OBJECTIVE: Vital Signs: Temperature 98 degrees, heart rate 79, respirations 14 , blood pressure 143/65, O2 saturations 98% on nasal cannula at 2 L. Laboratory Data: White blood cells 30.51, hemoglobin 10.6, hematocrit 33.6, platelet count is 228,000. Sodium 131, potassium 4, chloride 96, CO2 of 24, BUN 18, creatinine 0.6, glucose 172. A CT of the thorax with contrast shows slight increase in the size in soft tissue implant, esophageal mass, and adenopathy, with some slight decrease in enhancement, trace pleural effusions, trace peritoneal free air from the recent abdominal surgery. Otherwise, no new or specific abnormality. Physical Examination: CV: Regular rate and rhythm. S1-S2 heard. No murmurs, gallops, or rubs appreciated. Respiratory: Chest is clear to auscultation bilaterally. Normal respiratory effort. Gastrointestinal: Abdomen is soft. There is some tenderness due to having his J-tube replaced. Positive bowel sounds. Extremities: Patient has no edema times four extremities. ASSESSMENT AND PLAN: 1. Metastatic esophageal carcinoma. Patient is now status post 2 cycles of cisplatin and 5-FU. The plan is to discontinue therapy at this time. He is scheduled to have a PET scan prior to his return visit in our office. Treatment on hold at this time. 2. Nausea and vomiting. Continue intravenous Zofran and Phenergan. Continue aggressive hydration. He is also receiving now Clinimix. Continue tube feedings. 3. J-tube malfunction. This has now been replaced. Postoperative management as per Dr. Molina. 4. Leukocytosis. Patient is status post Neulasta on 08/29/2016. 5. J-tube infection. At the time of the replacement of his J-tube, there was drainage from the area which grew oxacillin sensitive staphylococcus with Klebsiella. Dr. Rizvi is now seeing the patient. He is on antibiotics per his recommendations. Continue to follow. Dictated by RICCARDO Thomas for Jane Kenyon MD cc: Jane Kenyon MD I have seen and examined the patient and reviewed with the above A/P. Jane Kenyon MD [facility]
--- NOTE | 2016-09-01 18:09 | PROGRESS NOTE ---
DATE: 09/01/2016 SUBJECTIVE: Mr. Villasenor is feeling better. He has remained afebrile. OBJECTIVE: Vital signs: Temperature 98.6 degrees, pulse 90, respirations 16, blood pressure 145/73. Lungs: Clear in all lung romero. Cardiovascular: Regular rhythm and rate without murmur or S3. Abdomen: Soft. Skin: Warm and dry. Urine: Output 18, 1900 mL. LABORATORY: Blood sugar 167, 151, 92. White count up to 30,510, hematocrit 33, platelet count 228,000. Chemistry: Sodium 131, potassium 4.0, chloride 96, BUN 18, creatinine 0.6, blood sugar 139, 171, 51, 89. DIAGNOSTIC: A CT of his chest was done this morning with slight increased size, soft tissue implant, esophageal mass and adenopathy with some slight decrease in enhancement, trace pleural effusion, trace peritoneal free air from recent abdominal surgery. Otherwise no new specific abnormality. ASSESSMENT AND PLAN: 1. Metastatic esophageal carcinoma status post 2 cycles of cisplatin and 5FU. Plan is to discontinue therapy at this time. He is scheduled to have a PET scan prior to his return visit. Treatment on hold at this time. 2. Nausea and vomiting. Continue intravenous Zofran or Phenergan. This is better. 3. J-tube came out and was replaced per Dr. Sim Molina. 4. Leukocytosis. Patient is status post Neulasta on 08/29. 5. J-tube infection. At the time of replacement of the J-tube there was an intra-abdominal abscess and drainage from the area grew oxacillin sensitive Staphylococcus with Klebsiella so he is seeing Dr. Rizvi. He is on antiplatelets. We will continue Zosyn 3.375 mg IV q.6h, vancomycin 1650 mg IV q.18 hours, micafungin 100 mg IV q.24 hours, fentanyl patch 25 mcg q.72 hours, Clinimix as well. cc: Emory Al MD
[2016-09-01] MEDS: VANCOMYCIN 1,300 MG in NS 250 ML IV SCH (23:39)
[2016-09-02] MEDS: NS 1,000 ML IV SCH ×2 (04:18→18:37)
[2016-09-02] MEDS: CLINIMIX E 4.25%-5% SOLUTION 1,000 ML IV SCH ×3 (04:18→18:37)
[2016-09-02] MEDS: ZOSYN 3.375 GM/NS 3.375 GM/50 ML IVPB IV SCH ×4 (04:25→23:26)
[2016-09-02] MEDS: PEPCID IV SCH ×2 (04:25→16:29)
[2016-09-02] MEDS: HUMULIN R SUBQ SCH ×4 (06:14→20:13)
[2016-09-02] MEDS: MYCAMINE 100 MG in NS 100 ML IV SCH (08:57)
[2016-09-02] MEDS: VANCOMYCIN 1,300 MG in NS 250 ML IV SCH ×2 (14:38→23:28)
--- NOTE | 2016-09-02 14:59 | PROGRESS NOTE ---
DATE: 09/02/2016 SUBJECTIVE: This patient is feeling better, no fever, no chills, is complaining of mild abdominal soreness. OBJECTIVE: Vital Signs: Temperature 98.2 degrees, pulse 89, respiratory rate 18, blood pressure 152/78, oxygen saturation 98 on room air. HEENT: Head normocephalic. No trauma. PERRLA. Neck: Supple. No JVD. No masses. Central trachea. Chest: Clear to auscultation. No wheezing. No rales. Abdomen: Soft. Mildly distended. Mild tenderness to palpation at the level of the periumbilical and left side of the abdomen. Positive bowel sounds. Extremities: No edema. No clubbing. No cyanosis. Neurological examination: The patient is alert and oriented x3. No focal neurological deficits. LABORATORY: WBC 30.5, hemoglobin 10.6, hematocrit 33.6, platelets 228. Sodium 131, potassium 4, chloride 96, bicarbonate 24, BUN 18, creatinine 0.6, glucose 172, calcium 7.5. ASSESSMENT AND PLAN: 1. Metastatic esophageal carcinoma status post 2 cycles of cisplatin and 5-FU. The plan is to discontinue therapy at this time. He needs to do a PET scan as an outpatient and apparently this is already scheduled. 2. Nausea and vomiting. Continue with the same management. This is better. 3. J-tube came out and was replaced by Dr. Molina. 4. Leukocytosis. This is getting worse. Infectious Disease Department is following this patient. We will continue following his recommendations for now. He is not having fever or chills. 5. J-tube infection. At the time of replacement of the J-tube, there was an intra-abdominal abscess. Drainage from that abscess. This large area grew oxacillin-sensitive Staphylococcus with Klebsiella. Infectious Disease Department is following this patient. cc: Baron Troy MD
--- NOTE | 2016-09-02 18:27 | PROGRESS NOTE ---
DATE: 09/02/2016 PRESENT ILLNESS: The patient has a marked leukocytosis, the etiology of which is uncertain to me. He is not having any fever. MEDICATIONS: The patient is receiving a combination of micafungin, vancomycin and Zosyn. PHYSICAL EXAMINATION: Vital Signs: Temperature is 98.6 degrees, pulse 96, respirations 16, blood pressure 151/68. General: This is a somewhat ill-appearing elderly male. He is in no acute distress. Lungs: Clear to auscultation. Cardiovascular: Regular heart rate. Chest: The patient has a Port-A-Cath present on the left side. The site is not swollen or erythematous. Abdomen: Soft. A J tube is in place. There is no visible erythema. LABORATORY AND X-RAY: There is no new laboratory or x-ray for today and the patient's blood cultures are pending. ASSESSMENT AND PLAN: 1. Patient has leukocytosis. The exact etiology is uncertain at this time. The plan is to continue with the patient's antibiotics pending the blood culture results. 2. Comorbidities: He is elderly. He also has esophageal cancer diabetes and diabetes mellitus and benign prostatic hypertrophy. cc: Alex Rizvi MD
[2016-09-02] MEDS: DURAGESIC 25 MICROGM/HR PATCH TD SCH (20:15)
[2016-09-03] MEDS: MORPHINE PCA IV PRN (04:01)
[2016-09-03] MEDS: PEPCID IV SCH ×2 (04:47→18:04)
[2016-09-03] MEDS: ZOSYN 3.375 GM/NS 3.375 GM/50 ML IVPB IV SCH ×3 (04:47→21:21)
[2016-09-03] MEDS: HUMULIN R SUBQ SCH ×5 (06:11→21:21)
[2016-09-03 07:31] LABS: BASO% 0.4 % (0.0-0.8); EOS# 0.11 X1000 (0.0-0.7); HEMATOCRIT 33.8 % (42.0-52.0); HEMOGLOBIN 10.7 g/dL (14.0-18.0); IMM GRAN# 0.03 X1000 (0.0-0.04); IMM GRAN% 0.3 % (0.0-0.5); LYMPH# 1.45 X1000 (1.2-3.4); LYMPH% 13.4 % (20.5-51.1); MANUAL DIFF NEEDED? YES; MCH 25.8 PG (27-31); MCHC 31.7 g/dL (33-37); MCV 81.6 FL (81-99); MONO# 1.02 X1000 (0.11-0.59); MONO% 9.4 % (1.7-9.3); MPV 10.1 FL (7.4-10.4); NEUT% 75.5 % (42.2-75.2); PLT 236 X1000 (130-400); RBC 4.14 XMIL (4.7-6.1)
[2016-09-03 07:39] LABS: AGAP 14; BUN 20 mg/dL (8-22); CALCIUM 7.3 mg/dL (8.8-10.2); CHLORIDE 98 mmol/L (98-107); COSMO 279; POTASSIUM 3.8 mmol/L (3.5-5.1); SODIUM 136 mmol/L (136-145); TCO2 24 mmol/L (25-35)
[2016-09-03 08:01] LABS: BANDS 6 % (0-1); EOS 2 % (1-10); LYMPHS 20 % (21-51); MONO 12 % (1-9)
[2016-09-03] MEDS: MYCAMINE 100 MG in NS 100 ML IV SCH (09:07)
[2016-09-03] MEDS ORDERED: HYDROCODONE/APAP 7.5-325/15 ML PO PRN (11:44)
--- NOTE | 2016-09-03 14:31 | PROGRESS NOTE ---
DATE: 09/03/2016 SUBJECTIVE: This patient is feeling better. No fever. No chills. He is complaining of mild abdominal soreness. He has been on a LIVESTOCK SPECULATOR pump, I will stop that and I will start with liquid hydrocodone. If he tolerates that, hopefully tomorrow we can discharge this patient. He has home health with [facility]. His WBC decreased from 30 to 10, Surgery Department and Oncology Department are following this patient. OBJECTIVE: Vital Signs: Temperature 98.6 degrees, pulse 86, respiratory rate 16, blood pressure 161/79, oxygen saturation 97% on nasal cannula 1-2 L. HEENT: Head normocephalic. No trauma. PERRLA. Neck: Supple. No JVD. No masses. Central trachea. Chest: Clear to auscultation. No wheezing. No rales. Abdomen: Soft, mildly distended, nontender. Positive bowel sounds. Extremities: No edema. No clubbing. No cyanosis. Neurological: The patient is alert and oriented x3. No focal neurological deficits. LABORATORY: WBC 10.8, hemoglobin 10.7, hematocrit 33.8, platelets 236,000. Sodium 136, potassium 3.8, chloride 98, bicarbonate 24, BUN 20, creatinine 0.6, glucose 186, calcium 7.3. ASSESSMENT AND PLAN: 1. Metastatic esophageal carcinoma, status post 2 cycles of cisplatin and 5-FU. The plan is to discontinue therapy at this time. He needs to do a PET scan as an outpatient and apparently this is already scheduled. 2. Nausea and vomiting. Continue with same management. Better. 3. J-tube came out and was replaced by Dr. Molina. 4. Leukocytosis. This is getting better. Continue with the same management. 5. Type 2 diabetes. I will put this patient on sliding scale, but the blood sugar has been stable. 6. He had a positive culture result from 08/18/2016 that showed Staphylococcus aureus and Klebsiella pneumonia. This patient is on antibiotics and he will be discharged with antibiotics. cc: Baron Troy MD
[2016-09-03] MEDS: CLINIMIX E 4.25%-5% SOLUTION 1,000 ML IV SCH (15:08)
[2016-09-03] MEDS: VANCOMYCIN 1,300 MG in NS 250 ML IV SCH ×2 (15:08→23:20)
--- NOTE | 2016-09-03 16:19 | PROGRESS NOTE ---
DATE: 09/03/2016 SUBJECTIVE: Mr. Villasenor reports he is feeling well today. He has no acute complaints. OBJECTIVE: Vital Signs: Temperature 98.6 degrees, heart rate 86, respiration 16, blood pressure 161/79, O2 saturation 97% on 1 L nasal cannula. LABORATORY: White blood cells 10.83, hemoglobin 10.7, hematocrit 33.8, platelets 263,000. Sodium 136, potassium 3.8, chloride 98, CO2 24, BUN 20, creatinine 0.6, glucose 186. PHYSICAL EXAMINATION: CV: Regular rate and rhythm. S2, S2 heard. Respiratory: Chest is clear to auscultation bilaterally. No respiratory effort. Gastrointestinal: Abdomen is soft and nondistended. J-tube in place. Diffuse tenderness secondary to surgery. Extremities: No bilateral lower extremity edema noted. ASSESSMENT AND PLAN: 1. Metastatic esophageal carcinoma. The patient has completed 2 cycles of cisplatin and 5-FU. Therapy will be discontinued at this time. We will plan to reassess the patient once he is out of the hospital and discuss further treatment at that time. 2. Nausea and vomiting. Improved. He is receiving IV Zofran and Phenergan. Continue hydration. 3. J-tube malfunction. This has now been replaced. 4. Leukocytosis. Improving. Patient did receive Neulasta 08/29/2016. 5. J-tube infection. He is receiving IV antibiotics as per Infectious Disease. Continue at this time. 6. Disposition. It is felt that the patient will be ready to go home once his pain is managed on either medications he can swallow or with a fentanyl patch. Patient can follow up with us as an outpatient. Dictated by RICCARDO Thomas for Jane Kenyon MD cc: Jane Kenyon MD I have seen and examined the patient and agree with the above A/P. Jane AL
--- NOTE | 2016-09-03 19:26 | PROGRESS NOTE ---
DATE: 09/03/2016 PRESENT ILLNESS: The patient has a leukocytosis which has cleared and now his white count is down to 10,830. In hindsight it was found that the patient did have a shot of Neulasta and most likely this was responsible for the leukocytosis. MEDICATIONS: Currently, the patient is being treated with micafungin, vancomycin and Zosyn. PHYSICAL EXAMINATION: Vital Signs: Temperature is 98 degrees, pulse 84, respirations 16, blood pressure 152/67. General: This is an ill-appearing, elderly male. He vomited twice while I was in the room. Lungs: Clear to auscultation. Cardiovascular: Regular heart rate. Abdomen: Soft and not tender. There is a dressing and the dressing is intact. The patient has a J-tube in place. Thorax: The patient has a Port-A-Cath present on the left side. The site is not swollen or erythematous. LAB AND X-RAY: The CBC today had a white count 28139, hemoglobin 10.7, and platelet count 236,000. Creatinine is 0.6. GFR is greater than 60. Blood cultures are sterile. ASSESSMENT AND PLAN: I think the leukocytosis is most likely secondary to the Neulasta he received. The patient's wound where the J-tube was did grow out Staph aureus and Klebsiella. I think that it is very reasonable to give the patient Keflex which Dr. Molina already has written for. The Keflex covers both of those organisms. COMORBIDITIES: Include he is elderly. Unfortunately he has esophageal cancer. Patient also has diabetes mellitus and benign prostatic hypertrophy. cc: Alex Rizvi MD
[2016-09-04] MEDS: HUMULIN R SUBQ SCH ×7 (00:34→17:02)
[2016-09-04] MEDS: ZOSYN 3.375 GM/NS 3.375 GM/50 ML IVPB IV SCH ×2 (03:04→09:20)
[2016-09-04] MEDS: PEPCID IV SCH ×2 (03:04→17:03)
[2016-09-04] MEDS: CLINIMIX E 4.25%-5% SOLUTION 1,000 ML IV SCH ×2 (06:12→10:23)
[2016-09-04 06:38] LABS: BASO% 0.3 % (0.0-0.8); EOS# 0.08 X1000 (0.0-0.7); EOS% 1.1 % (0.0-10.0); HEMOGLOBIN 10.7 g/dL (14.0-18.0); IMM GRAN# 0.02 X1000 (0.0-0.04); IMM GRAN% 0.3 % (0.0-0.5); LYMPH# 0.84 X1000 (1.2-3.4); MANUAL DIFF NEEDED? YES; MCH 25.7 PG (27-31); MCHC 31.5 g/dL (33-37); MCV 81.7 FL (81-99); MONO# 0.78 X1000 (0.11-0.59); MONO% 11.1 % (1.7-9.3); MPV 9.9 FL (7.4-10.4); NEUT% 75.2 % (42.2-75.2); PLT 222 X1000 (130-400); RBC 4.16 XMIL (4.7-6.1)
[2016-09-04 06:48] LABS: BANDS 26 % (0-1); EOS 2 % (1-10); HYPOCHROM 1+; LYMPHS 10 % (21-51); MONO 8 % (1-9); POLYCHROM OCCASIONAL
[2016-09-04 06:49] LABS: AGAP 10; BUN 17 mg/dL (8-22); CALCIUM 7.6 mg/dL (8.8-10.2); CHLORIDE 98 mmol/L (98-107); COSMO 273; POTASSIUM 3.7 mmol/L (3.5-5.1); SODIUM 133 mmol/L (136-145); TCO2 25 mmol/L (25-35)
[2016-09-04] MEDS: MYCAMINE 100 MG in NS 100 ML IV SCH (09:19)
[2016-09-04] MEDS ORDERED: NS 1,000 ML IV SCH (10:07)
[2016-09-04] MEDS: NS 1,000 ML IV SCH (10:23)
[2016-09-04] MEDS: VANCOMYCIN 1,300 MG in NS 250 ML IV SCH (12:36)
--- NOTE | 2016-09-04 13:15 | PROGRESS NOTE ---
DATE: 09/04/2016 SUBJECTIVE: This patient states that the pain is much better but now he is complaining of diarrhea. Today, he has been having 4 episodes so far; no blood. I have stopped the Clinimix. I have stopped the IV antibiotics, and I started this patent on Keflex as a single antibiotic. For the diarrhea I have ordered a Clostridium difficile toxin and antigen, and I increased the rate of the normal saline to avoid dehydration. I have stopped the Clinimix because this patient is getting Glucerna. OBJECTIVE: Vital Signs: Temperature 98.3 degrees, pulse 85, respiratory rate 16, blood pressure 170/78, oxygen saturation 97% on 2 L of nasal cannula. HEENT: Normocephalic. No trauma. PERRLA. Neck: Supple. No JVD. No masses. Central trachea. Chest: Clear to auscultation. No wheezing. No rales. Abdomen soft. Mild tenderness to palpation at the level of the periumbilical area. Positive bowel sounds. Extremities: No edema. No clubbing. No cyanosis. Neurologic: The patient is alert and oriented x3. No focal deficits. LABORATORY: WBC 7, hemoglobin 10.7, hematocrit 34, platelets 222,000. Sodium 133, potassium 3.7, chloride 98, bicarbonate 25. BUN 17, creatinine 0.5, glucose 189. Calcium 7.6. ASSESSMENT AND PLAN: 1. Metastatic esophageal gastric carcinoma status post 2 cycles of cisplatin and 5 FU. The plan is to hold the therapy at this time. He needs to do a PET scan as an outpatient and apparently this is already scheduled. 2. Nausea and vomiting, resolved. 3. Diarrhea. This patient had so far 4 episodes of diarrhea today. I have increased the rate of normal saline. I stopped the Clinimix and IV antibiotics. 4. Leukocytosis, resolved. 5. Type 2 diabetes. Continue with sliding scale but the blood sugar has been stable. 6. He had a positive culture result for 08/18/2016 that showed Staphylococcus aureus and Klebsiella pneumonia. The patient is on antibiotics, vancomycin and Zosyn. I will stop them together, and I will start this patient on Keflex. 7. I have ordered Clostridium difficile antigen and toxin in the stool. If this is negative, probably this patient can be discharged either today or tomorrow morning. cc: Baron Troy MD
[2016-09-04 15:18] VITALS: BP 154/64
[2016-09-04] MEDS ORDERED: KEFLEX LIQUID PO SCH (21:00)
--- NOTE | 2016-09-06 07:39 | DISCHARGE SUMMARY ---
ADMISSION DATE: 08/30/2016 DISCHARGE DATE: 09/04/2016 CONSULTATIONS: 1. Dr. Jane Kenyon with Heme-Onc. 2. Dr. Alex Rizvi with Infectious Disease. PERTINENT PROCEDURES: 1. Exploratory laparotomy and replacement of feeding jejunostomy performed by Dr. Sim Molina. 2. Chest CT showed a slight increase of soft tissue, esophageal mass and adenopathy with some slight decrease in enhancement. Trace pleural effusions. Trace peritoneal free air from the recent abdominal surgery. Otherwise, no new or specific abnormality. DISCHARGE DIAGNOSES: 1. Metastatic esophageal gastric carcinoma, status post 2 cycles of Cisplatin 5 FU. Plan is to hold therapy at this time. He needs to have a PET scan as outpatient and has this scheduled, stable. 2. Nausea, vomiting, resolved. 3. Diarrhea, stable. 4. Leukocytosis, resolved. 5. Type 2 diabetes. Continue with home medications. 6. Staphylococcus aureus and Klebsiella wound infection from J-tube. The patient will continue on p.o. Keflex. HOSPITAL COURSE: Briefly, Mr. Villasenor is a 71-year-old male with a recent diagnosis of metastatic esophageal carcinoma. He has been on treatment with Cisplatin and 5-FU, received cycle 2 of therapy on 08/25/2016. He had intractable nausea and vomiting with this cycle of chemotherapy despite Ativan gel, Reglan gel, and Phenergan gel and Sancuso patch. He noted loss of his J-tube the day before his admission, so he presented to the emergency room for evaluation. He was seen and evaluated by Dr. Molina who did an exploratory laparotomy with replacement of his J-tube. His treatments were currently placed on hold by Heme-Onc. Cultures from around his J-tube grew out Klebsiella as well as staph aureus. So, the patient will be placed on p.o. Keflex. Initially, the patient did have leukocytosis, however, they felt that this was secondary to his Lunesta. His leukocytosis has now resolved. His nausea and vomiting has improved. His J- tube is functioning properly. Clinically. The patient has improved. He is discharged on 2016. Vital signs at time of his discharge: Temperature is 97.6 degrees, heart rate 78, respiration 17, blood pressure 154/64, O2 is 99% on 2 L nasal cannula. DISCHARGE MEDICATIONS: As per Dr. Mayo. 1. Norvasc 5 mg p.o. daily. 2. Keflex 500 mg p.o. b.i.d. 3. Diclegis DR 10, 10 mg 1 each p.o. t.i.d. p.r.n. 4. Fentanyl patch. 25 mcg topical as ordered. 5. [place] 10 one each p.o. b.i.d. p.r.n. 6. Tofranil 50 mg p.o. at bedtime. 7. Pravachol 40 mg p.o. at bedtime. 8. Flomax 0.4 mg p.o. b.i.d. 9. Stelazine 2 mg p.o. at bedtime. FOLLOWUP: The patient is being discharged home with home health. He will follow up with Dr. Jane Kenyon as scheduled as well as his primary care physician, Dr. Zenon Alford, in 7-10 days. The patient was discharged on 09/04/2016. He can return to the ED for any worsening of symptoms. Dictated by TORITO Vazquez for Baron Troy MD cc: MD Zenon Egan MD [facility]
== END 2016-09-04 17:00 | disposition home health service (06) ==
LOC: SUPCPDRO → ED 11:09 → SUATTDRO 15:08 → 3N 15:08
PROVIDERS: ATTEND Internal Medicine